=== PATIENT | male | born 1940 | race Caucasian/White ===

== ENCOUNTER → 2016-11-07 | Outpatient (CLI) | payer MEDICARE, BC ==
[2014-05-16 14:33] VITALS: BP 150/81
[~2016-11-07] MED LIST: AMIO200T2 PO; AMLO-254 PO; AMLO10TA2 PO; ASPI-482 PO; BENA20TA2 PO; GADOBUTROL 10 MMOL/10 ML VIAL IV ONE; HYDR-2679 PO; METO100T11 PO; METO1TAB8 PO; NIAC500T4 PO; POTA20TA82 PO; WARF5TAB7 PO
--- NOTE | 2016-11-07 15:51 | KCIC ---
PROCEDURE MRI thoracic spine without contrast. HISTORY Stenosis. Numbness in legs. TECHNIQUE Sagittal T1, sagittal T2, sagittal STIR, axial T1, and axial T2 sequences are provided. One dose of 10 milliliters of intravenous Gadavist was administered for today's exams and post-contrast axial and sagittal imaging was then performed. COMPARISON June 15, 2015. FINDINGS There is no change in alignment. There is marrow heterogeneity again noted with several probable hemangiomas. There is cord hyperintensity at T11-T12 and possibly T9-T10. Potential cyst or hemangioma is noted in the posterior segment of the right hepatic lobe. Probable left renal cyst is noted. Endplate degenerative changes in the upper thoracic spine do not result in high-grade canal stenosis. At T7-T8, disc osteophyte complex and facet hypertrophy are noted with cord flattening. Midline AP diameter of the thecal sac is narrowed to 7-8 millimeters. There is a mild bilateral foraminal narrowing. Findings are similar to prior. At T9-T10, there may be extraosseous extension of the hemangioma as described previously. There is also a disc osteophyte complex and facet hypertrophy. There is severe canal stenosis with no CSF surrounding the nerve roots and with cord flattening. Again, there may be cord hyperintensity. AP diameter of thecal sac in the midline is 4 millimeters. There is also foraminal narrowing bilaterally. Findings have increased. At T11-T12, disc osteophyte complex and facet hypertrophy are noted with severe bilateral foraminal narrowing. There is mild to moderate canal stenosis. There is cord hyperintensity confirmed both on sagittal and axial imaging. Findings are similar to prior. There is no pathologic enhancement. IMPRESSION 1. Degenerative changes are most notable at T7-T8, T9-T10, and T11-T12. Findings have increased at T9-T10. 2. Potential extraosseous extension of hemangioma at T9. This is similar to prior. Electronically signed by: Pk Simmons MD (November 07, 2016 15:49:37)
--- NOTE | 2016-11-07 16:13 | KCIC ---
PROCEDURE MRI lumbar spine with or without contrast. HISTORY Numbness in both legs and right leg weakness. Prior surgery. TECHNIQUE Sagittal T1, sagittal T2, sagittal STIR, axial T1, and axial T2 sequences are provided. One dose of 10 milliliters of intravenous Gadavist was administered for today's exams and post-contrast axial and sagittal imaging was then performed. COMPARISON Preoperative study from August 08, 2013. FINDINGS There is no malalignment. There is marrow heterogeneity and fatty replacement of the endplates which is likely degenerative. Edema in the inferior endplate of L2 is likely degenerative. There is no worrisome marrow lesion. There are several Schmorl's nodes. There is diffuse disc desiccation and narrowing of disc height. There are probably vacuum discs. The conus medullaris is normal in signal intensity and in position. Decompression is noted at L3-L4 and L4-L5. This is new from prior. There is no pathologic enhancement. Degenerative findings by individual level are as follows: T12-L1: Disc osteophyte complex is noted with mild canal stenosis and moderate foraminal narrowing. L1-L2: Disc osteophyte complex and facet hypertrophy are noted. Midline AP diameter of the thecal sac is 9 millimeters, mildly narrowed. There is mild lateral recess narrowing. There is mild to moderate bilateral foraminal narrowing. L2-L3: Disc osteophyte complex and facet hypertrophy are noted. Decompression begins just below this level. There is no canal stenosis, midline AP diameter of the thecal sac 12 millimeters. There is lateral recess narrowing bilaterally. There is moderate foraminal narrowing. L3-L4: Disc osteophyte complex and facet and ligamentum flavum hypertrophy are noted, there appears to be moderate circumferential narrowing of the spinal canal even post decompression. Midline AP diameter of the thecal sac is 7 millimeters. There is lateral recess narrowing bilaterally which is high-grade. There is also moderate to severe left and moderate right foraminal narrowing. L4-L5: Disc bulge is noted along with marked facet hypertrophy and ligamentum flavum hypertrophy. There is moderate to severe canal stenosis even post decompression. Midline AP diameter of the thecal sac is 7 millimeters. There is lateral recess narrowing bilaterally. Foraminal narrowing is high-grade, greater on the right. L5-S1: Disc osteophyte complex and facet hypertrophy are noted with high-grade bilateral foraminal narrowing. There is also lateral recess narrowing. Midline AP diameter of the thecal sac is 12 millimeters. IMPRESSION Degenerative changes in the lumbar spine including disc osteophyte complexes, facet hypertrophy and ligamentum flavum hypertrophy. Several levels of canal and foraminal compromise, even after decompression. Electronically signed by: Pk Simmons MD (November 07, 2016 16:12:06)
== END | disposition home or self-care (01) ==
LOC: KCIC MRI 13:40
PROVIDERS: ATTEND Neurological Surgery
DX: M47.894 Other spondylosis, thoracic region (principal); M48.06 Spinal stenosis, lumbar region; M47.896 Other spondylosis, lumbar region
CPT/HCPCS: 72157; 72158; 82565; A9585

== ENCOUNTER → 2016-12-10 | Outpatient (CLI) | payer MEDICARE, BC ==
[2014-05-16 14:33] VITALS: BP 150/81
[~2016-12-10] MED LIST changes: +FURO-69 PO; -GADOBUTROL 10 MMOL/10 ML VIAL IV ONE; +LOVA20TA2 PO
--- NOTE | 2016-12-11 02:33 | PAIN ---
DATE OF SERVICE: 12/10/2016 INITIAL CONSULTATION FOR PAIN CLINIC CHIEF COMPLAINT: Low back and right lower extremity pain. HISTORY OF PRESENT ILLNESS: This is a 76-year-old male who presents with history of pain in the low back and right lower extremity for about 5 years. He had surgery about 3 years ago in the lumbar spine with lumbar decompressive laminectomy, also surgical decompression of the cervical spine in that same year. The patient reports he did well until the last few months. The pain is beginning to increase over that time, with unsteady gait with walking and right leg with pain radiating from the low back into the posterior gluteus bilaterally, posterior thigh, posterior lateral thigh, lateral anterior thigh, lateral anterior medial thigh, anterior lower leg and foot with some pain behind the knee as well on the right side. The patient reports if he walks for any length of time greater than 15-20 minutes his legs feel heavy, he has to sit for a period of time, about 2-3 minutes, and the pain is decreased, he can get up and walk again. The patient reports lying down does give him relief and he actually slept in the recliner the other day taking a nap and felt much better than he has felt in a long time by his report and his balance was better for several hours following sleeping in the reclining chair. The patient reports no new motor or sensory deficits, reports no loss of motor function completely. He reports no specific injury or accident that he is aware of. He describes the pain as intermittent in intensity, but with numbness and radiating pain and tingling in the leg itself, worse than the low back. The patient reports it does not awake him from sleep at night usually, does not affect his bowel or bladder control, but does affect his ability to walk using a cane, holding in his left hand. The patient did have MRI scan of the lumbar spine showing multiple levels of degenerative changes and spinal stenosis with several level of canal and foraminal compromise even after decompression, mostly the L3-L4, L4-L5 and L5-S1 with high-grade stenosis at L5-S1 bilaterally. The patient's disability rating from 0-10, 10 being the worst, is a 5 with family and home responsibilities and recreation, 2 with social activity and 0 with self-care and life support activities. PAST MEDICAL HISTORY: Significant for hypertension, atrial fibrillation, pipe smoking for the past 50 years, arthritis, history of leg weakness. PAST SURGICAL HISTORY: Include a cervical decompressive laminectomy in 2014 as well as lumbar decompressive laminectomy in 2014, and right leg surgery in 1968 with resetting of a fractured distal tibia, by his report. CURRENT MEDICATIONS: Include amiodarone, potassium, benazepril, warfarin, metoprolol, lovastatin, Lasix, and amlodipine. ALLERGIES: The patient has no known drug allergies. FAMILY HISTORY: Significant for coronary artery disease, hypertension, myocardial infarction. SOCIAL HISTORY: The patient does smoke a pipe and has for about 50 years, does not drink alcohol often, is and lives with his spouse, lives locally in [place], [place]. Reports that he is currently retired. REVIEW OF SYSTEMS: The patient's review of systems is positive for those items mentioned in the history of present illness. All systems reviewed and otherwise negative. It is complete, full and well documented on the patient's chart. PHYSICAL EXAMINATION: VITAL SIGNS: The patient's blood pressure is 144/75, pulse is 55, respirations 18, temperature degrees Fahrenheit, height is 5 feet 10 inches, weighs 221 pounds. GENERAL: The patient is awake, alert, oriented, appropriate, very pleasant demeanor. HEENT: Head shows normocephalic, atraumatic. Extraocular movements are intact, symmetrical. Oral cavity shows mucous membranes moist and pink. Dentition is intact. NECK: Shows anterior throat supple without palpable lymphadenopathy noted. Swallow reflex is symmetrical. CHEST: Shows normal on inspection. Breath sounds clear to auscultation bilaterally. HEART: Shows S1 and S2 clear. ABDOMEN: Soft, nontender, nondistended, obese without palpable organomegaly. No rebound or guarding demonstrated. BACK: Shows spine grossly midline. Normal appearing thoracic kyphosis and some mild flattening of lumbar lordotic curvature with previously well-healed surgical scar noted in the lumbar distribution. Lumbar paraspinous muscle shows symmetrical with inspection with no asymmetry, no atrophy or hypertrophy. He does have well-healed surgical scar noted. With palpation shows moderate tenderness with palpation in the middle and lower distribution of the paraspinous muscles bilaterally, but only diffusely and only very moderately. No tenderness over the sacrum or sacroiliac regions. The patient shows good rotation and motion of the lumbar spine, both laterally as well as extension and flexion without difficulty. EXTREMITIES: Lower extremities show deep tendon reflexes at 1+ in the patellar and tendo calcaneus tendons, are equal. Motor exam is intact with 5/5 dorsiflexion, extension, quadriceps and hamstring flexion and equal as well. Straight leg raise is negative bilaterally for reproduction of radicular symptoms. Gaenslen's and Paul's maneuvers are negative for reproduction of pain as well. Peripheral pulses are 1+ in the posterior tibial and dorsalis pedis pulses. No peripheral edema is noted. No clubbing, no cyanosis bilaterally. The patient is able to stand, stand on his toes without difficulty or loss of balance. He is walking with a slight antalgic gait, appears to favor the right lower extremity and again has a cane in his left hand with ambulation. IMPRESSION: 1. This is a 76-year-old male with a several-year history of low back, right lower extremity pain, worse over the past several months. 2. MRI scan of lumbar spine as noted. 3. History of hypertension and atrial fibrillation. 4. Arthritis. PLAN: Options were discussed with the patient and the patient's spouse who accompanies him to visit today including conservative medical management, continued physical therapies, interventional technique. He would like to pursue interventional techniques as he is currently doing exercises and has had some physical therapy done. We discussed a caudal approach epidural steroid injection using description as well as anatomical models to describe the procedure. The patient would like to pursue this. We will check with his risk and insurance consultant prior to proceeding as he is on Coumadin. We will see if he will be cleared to hold the Coumadin for about 5 days with PT/INR pending. If this is within normal range and deemed safe and appropriate with his risk and insurance consultant to do so, we will hold this and then proceed with a caudal epidural steroid injection at that time. CADE BLAKE MD DR: ANITHA/baldev JOB#: [id number] / [id number]
== END | disposition home or self-care (01) ==
LOC: PNCL 13:15
PROVIDERS: ATTEND Anesthesiology
DX: M54.5 Low back pain (principal); M79.604 Pain in right leg
CPT/HCPCS: G0463

== ENCOUNTER → 2016-12-22 | Outpatient (CLI) | payer MEDICARE, BC ==
[2014-05-16 14:33] VITALS: BP 150/81
[~2016-12-22] MED LIST changes: +IOHEXOL 180 MG/ML 10 ML VIAL. ONE; +methylPREDNISolone ACETATE 40 MG/ML VIAL. ONE; +methylPREDNISolone ACETATE 80 MG/ML VIAL. ONE
[2016-12-22 12:58] LABS: INR 1.1 (0.8-1.1); PROTHROMBIN TIME PATIENT 13.8 SEC (11.7-14.0)
--- NOTE | 2016-12-23 06:06 | PAIN ---
DATE OF SERVICE: PROGRESS NOTE FOR PAIN CLINIC DIAGNOSES: Lumbar radiculopathy with lumbar spinal stenosis and post-lumbar laminectomy syndrome. HISTORY OF PRESENT ILLNESS: The patient is a 76-year-old male, who returns for followup, status post initial evaluation and preauthorization to hold his Coumadin. He has been off of this for 5 days now with an INR today of 1.1 and PT of 13.8. The patient reports still significant pain in the low back and right lower extremity as it was previously and rated this as a 5 on a scale of 10 at its worse and 4 at its least. The patient reports no new motor or sensory deficits, no new bowel or bladder incontinence, and again worse with standing and walking. He is on his feet quite a bit over the past few days and reports that the pain has been much worse with some numbness in his toes, especially on the right foot. The patient reports no new bowel or bladder incontinence and no new motor or sensory deficits. PHYSICAL EXAMINATION: VITAL SIGNS: Today, the patient's blood pressure is 144/80, pulse 68, respirations 18, and temperature 97.9 degrees Fahrenheit. Height is 5 feet 10 inches and weighs 227 pounds. GENERAL: The patient is awake, alert, oriented, and appropriate, has a very pleasant demeanor. HEENT: Shows normocephalic, atraumatic. Extraocular movements are intact and symmetrical. Oral cavity, mucous membranes are moist and pink. Dentition is intact. NECK: Shows anterior throat supple without palpable lymphadenopathy noted. Swallow reflex is symmetrical. CHEST: Shows normal on inspection. Breath sounds are clear to auscultation bilaterally. HEART: Shows S1 and S2 clear. ABDOMEN: Soft, nontender, and nondistended. No palpable organomegaly is noted. No rebound or guarding demonstrated. BACK: Shows spine grossly midline. Well-healed surgical scarring is noted throughout the lower thoracic and entire lumbar distribution; essentially with palpation, shows some moderate tenderness to palpation diffusely bilaterally in the lumbar paraspinous muscles, but without radiation. EXTREMITIES: Lower extremities showed deep tendon reflexes at 1+ in the patellar and tendocalcaneus tendons. Motor exam is strong with 5/5 on dorsiflexion, extension, and quadriceps and hamstring flexion. Options were discussed with the patient. The patient's old chart was reviewed as his current medication regimen updated. Current review of systems was updated today as well. We will proceed with a caudal-approach epidural steroid injection today with fluoroscopic guidance. Risks were again discussed, including, but not limited to bleeding, infection, possibility of epidural hematoma, subsequent neurologic compromise, dural puncture, headaches, spinal cord and/or nerve damage, side effects of steroid medication, and poor results regarding pain control. The patient understands and wishes to proceed. The patient will return to clinic in approximately 2 weeks for followup, was counseled on return appointment, activity level, and side effects to be aware of. The patient will start taking his Coumadin again tomorrow and was counseled as to medication regimen. He had questions regarding staying off of his Coumadin and we ____ his aviation electronic warfare operator to see if there may be something that can be substituted for it. He will make these enquiries as well. DIAGNOSIS: Lumbar radiculopathy with lumbar spinal stenosis and post-lumbar laminectomy syndrome. PROCEDURE: Caudal-approach epidural steroid injection using C-arm fluoroscopic guidance under sterile prep and drape using local anesthetic. MEDICATIONS INJECTED: A total of 120 mg of Depo-Medrol plus 10 mL of preservative-free normal saline and 2 mL of Isovue for contrast. CONDITION ON DISCHARGE: Stable. The patient tolerated the procedure well, had no complications. CADE BLAKE MD DR: ANITHA/baldev JOB#: [id number] / [id number]
== END | disposition home or self-care (01) ==
LOC: PNCL 12:25
PROVIDERS: ATTEND Anesthesiology
DX: M48.06 Spinal stenosis, lumbar region (principal); M54.16 Radiculopathy, lumbar region; M96.1 Postlaminectomy syndrome, not elsewhere classified; I48.91 Unspecified atrial fibrillation; I10 Essential (primary) hypertension; M19.90 Unspecified osteoarthritis, unspecified site; F17.200 Nicotine dependence, unspecified, uncomplicated; Z72.89 Other problems related to lifestyle; Z86.69 Personal history of other diseases of the nervous system and sense organs
CPT/HCPCS: 36415; 62323; 85610; J1030; J1040

== ENCOUNTER → 2017-03-02 | Outpatient (CLI) | payer MEDICARE, BC ==
[2014-05-16 14:33] VITALS: BP 150/81
[~2017-03-02] MED LIST changes: -IOHEXOL 180 MG/ML 10 ML VIAL. ONE; -methylPREDNISolone ACETATE 40 MG/ML VIAL. ONE; -methylPREDNISolone ACETATE 80 MG/ML VIAL. ONE
[2017-03-02 09:02] LABS: INR 1.1 (0.8-1.1); PROTHROMBIN TIME PATIENT 13.9 SEC (11.7-14.0)
== END | disposition home or self-care (01) ==
LOC: LAB 08:26
PROVIDERS: ATTEND Anesthesiology
DX: Z51.81 Encounter for therapeutic drug level monitoring (principal); Z79.01 Long term (current) use of anticoagulants
CPT/HCPCS: 36415; 85610

== ENCOUNTER → 2017-03-02 | Outpatient (CLI) | payer MEDICARE, BC ==
[2014-05-16 14:33] VITALS: BP 150/81
[~2017-03-02] MED LIST changes: +IOHEXOL 180 MG/ML 10 ML VIAL. ONE; +methylPREDNISolone ACETATE 40 MG/ML VIAL. ONE; +methylPREDNISolone ACETATE 80 MG/ML VIAL. ONE
--- NOTE | 2017-03-02 11:48 | PAIN ---
DATE OF SERVICE: 03/02/2017 PROGRESS NOTE FOR PAIN CLINIC DIAGNOSES: Lumbar radiculopathy with lumbar spinal stenosis and post-lumbar laminectomy syndrome. HISTORY OF PRESENT ILLNESS: The patient is a 76-year-old male who returns for followup status post caudal epidural steroid injection x 1. The patient reports about 50% improvement overall. The first few days, about a 90% improvement and then after about a week, the pain began to return in his low back and into his right lower extremity as it was previously, but not back to baseline. The patient reports it has only been returning now for about few weeks. Before that, he was doing fairly well. The patient reports he is sleeping better at night. He still feels well with lying down or sitting down and worse with standing, walking or changing positions. He reports that his pain is a 4 on a scale of 4 at all times. It is tingling and aching and radiating to the right lower extremity, mostly in the lateral anterior and posterior thigh, with some numbness in the feet and toes on both feet. The patient reports no new motor or sensory deficits. No new bowel or bladder incontinence or other complaints. PHYSICAL EXAMINATION: VITAL SIGNS: Today, the patient's blood pressure is 141/82, pulse 74, respirations 18 and temperature is 97.5 degrees Fahrenheit. Height is 5 feet 11 inches, weight is 236 pounds. GENERAL: The patient is awake, alert, oriented and appropriate, very pleasant demeanor. The patient is accompanied by his spouse. HEENT EXAMINATION: Head shows normocephalic, atraumatic. The patient wears eyeglasses. Extraocular movements are intact and symmetrical. Oral cavity, mucous membranes are moist and pink. NECK: Shows anterior throat supple. CHEST: Shows normal on inspection. Breath sounds are clear to auscultation bilaterally. HEART: Shows S1 and S2 clear. ABDOMEN: Obese, soft, nontender and nondistended. No palpable organomegaly is noted. No rebound or guarding demonstrated. BACK: Shows spine grossly midline. Normal-appearing thoracic kyphosis and flattening of lumbar lordotic curvature. Previously well-healed surgical scars noted in the lumbar distribution. Lumbar paraspinous muscle shows symmetrical on inspection. With palpation, it shows some moderate tenderness bilaterally, but only diffusely. No tenderness over the sacrum or sacroiliac regions. EXTREMITIES: Lower extremities show deep tendon reflexes 2+ in patellar tendons and 1+ tendocalcaneus tendons and equal. Motor exam is strong with 5/5 dorsiflexion, extension, quadriceps and hamstring flexion. Peripheral pulses are 1+ bilaterally. Options were discussed with the patient. The patient's old chart was reviewed as his current medication regimen updated. Current review of systems updated today as well. We will proceed with the second in the series of caudal epidural steroid injection with fluoroscopic guidance. Risks were again discussed including, but not limited to bleeding, infection, possibility of epidural hematoma and subsequent neurologic compromise, dural puncture, headaches, spinal cord and/or nerve damage, side effects of steroid medication and poor results regarding pain control. The patient understands and wishes to proceed. The patient will return to the clinic in approximately 2 weeks for followup, was counseled on return appointment, activity level and side effects to be aware of. DIAGNOSES: Lumbar radiculopathy with lumbar spinal stenosis and post-lumbar laminectomy syndrome. PROCEDURE: Caudal approach epidural steroid injection using C-arm fluoroscopic guidance under sterile prep and drape using local anesthetic. MEDICATION INJECTED: A total of 120 mg Depo-Medrol plus 10 mL of preservative-free normal saline and 2 mL of Isovue for contrast. CONDITION AT DISCHARGE: Stable. The patient tolerated the procedure well, had no complications. CADE BLAKE MD DR: ANITHA/baldev JOB#: [id number] / [id number]
== END | disposition home or self-care (01) ==
LOC: PNCL 09:12
PROVIDERS: ATTEND Anesthesiology
DX: M48.06 Spinal stenosis, lumbar region (principal); M54.16 Radiculopathy, lumbar region; M96.1 Postlaminectomy syndrome, not elsewhere classified; I48.91 Unspecified atrial fibrillation; I10 Essential (primary) hypertension; M19.90 Unspecified osteoarthritis, unspecified site; F17.200 Nicotine dependence, unspecified, uncomplicated; Z86.69 Personal history of other diseases of the nervous system and sense organs; Z72.89 Other problems related to lifestyle
CPT/HCPCS: 62323; J1030; J1040

== ENCOUNTER → 2017-10-20 | Outpatient (CLI) | payer MEDICARE, BC | END | disposition home or self-care (01) | LOC: KCIC MRI 09:59 | DX: M48.05 Spinal stenosis, thoracolumbar region (principal); M47.14 Other spondylosis with myelopathy, thoracic region; M25.78 Osteophyte, vertebrae; M51.36 Other intervertebral disc degeneration, lumbar region; G95.89 Other specified diseases of spinal cord; I10 Essential (primary) hypertension | CPT/HCPCS: 72146; 72148 ==